=== PATIENT | male | born 1955 | race Caucasian/White ===

== ENCOUNTER → 2017-01-04 | Outpatient (CLI) | payer OTHER ==
[2017-01-04 09:22] LABS: ALANINE AMINOTRANSFERASE 30 U/L (21-72); ALBUMIN 4.6 g/dL (3.5-5.0); ALKALINE PHOSPHATASE 77 U/L (38-126); ANION GAP 15 (5-19); ASPARTATE AMINO TRANSFERASE 21 U/L (17-59); BILIRUBIN,DIRECT 0.1 mg/dL (0.0-0.4); BILIRUBIN,TOTAL 0.7 mg/dL (0.2-1.3); BLOOD UREA NITROGEN 19 mg/dL (7-20); CALCIUM 10.3 mg/dL (8.4-10.2); CARBON DIOXIDE 27 mmol/L (22-30); CHLORIDE 102 mmol/L (98-107); CHOLESTEROL 173.45 mg/dL (0-200); CREATININE RESULT 1.13 mg/dL (0.52-1.25); Direct HDL 57 mg/dL (>40); GLUCOSE 107 mg/dL (75-110); MAGNESIUM 2.1 mg/dL (1.6-2.3); POTASSIUM 4.2 mmol/L (3.6-5.0); SODIUM 143.8 mmol/L (137-145); TOTAL PROTEIN 7.7 g/dL (6.3-8.2); TRIGLYCERIDES 132 mg/dL (<150); URIC ACID 6.5 mg/dL (3.5-8.5)
[2017-01-04 09:34] LABS: DIRECT LDL 82 mg/dL (<100)
== END ==
LOC: OD 07:18
PROVIDERS: ATTEND Internal Medicine Cardiovascular Disease
DX: E78.00 Pure hypercholesterolemia, unspecified (principal); M10.9 Gout, unspecified; I10 Essential (primary) hypertension
CPT/HCPCS: 36415; 80048; 80061; 80076; 83735; 84550

== ENCOUNTER → 2017-04-11 | Outpatient (CLI) | payer OTHER ==
[2017-04-11 08:45] LABS: ANION GAP 11 (5-19); BLOOD UREA NITROGEN 20 mg/dL (7-20); CARBON DIOXIDE 28 mmol/L (22-30); CHLORIDE 102 mmol/L (98-107); CREATININE RESULT 1.13 mg/dL (0.52-1.25); GLUCOSE 102 mg/dL (75-110); POTASSIUM 4.2 mmol/L (3.6-5.0); SODIUM 140.6 mmol/L (137-145)
== END ==
LOC: OD 07:14
PROVIDERS: ATTEND Internal Medicine Cardiovascular Disease
DX: Z79.899 Other long term (current) drug therapy (principal)
CPT/HCPCS: 36415; 80048

== ENCOUNTER → 2017-11-07 | Outpatient (CLI) | payer OTHER ==
[2017-11-07 09:28] LABS: ANION GAP 11 (5-19); BLOOD UREA NITROGEN 21 mg/dL (7-20); CALCIUM 10.2 mg/dL (8.4-10.2); CARBON DIOXIDE 28 mmol/L (22-30); CHLORIDE 104 mmol/L (98-107); CHOLESTEROL 167.81 mg/dL (0-200); GLUCOSE 102 mg/dL (75-110); POTASSIUM 4.1 mmol/L (3.6-5.0); TRIGLYCERIDES 142 mg/dL (<150); URIC ACID 5.8 mg/dL (3.5-8.5)
[2017-11-07 09:38] LABS: DIRECT LDL 93 mg/dL (<100)
== END ==
LOC: OD 07:24
PROVIDERS: ATTEND Internal Medicine Cardiovascular Disease
DX: M10.9 Gout, unspecified (principal); I10 Essential (primary) hypertension; Z79.899 Other long term (current) drug therapy; E78.00 Pure hypercholesterolemia, unspecified
CPT/HCPCS: 36415; 80048; 80061; 83735; 84550

== ENCOUNTER → 2018-06-18 | Outpatient (CLI) | payer BC ==
[2018-06-18 08:37] LABS: ALANINE AMINOTRANSFERASE 21 U/L (21-72); ALBUMIN 4.4 g/dL (3.5-5.0); ALKALINE PHOSPHATASE 73 U/L (38-126); ANION GAP 10 (5-19); ASPARTATE AMINO TRANSFERASE 22 U/L (17-59); BILIRUBIN,DIRECT 0.4 mg/dL (0.0-0.4); BILIRUBIN,TOTAL 0.8 mg/dL (0.2-1.3); BLOOD UREA NITROGEN 15 mg/dL (7-20); CALCIUM 10.2 mg/dL (8.4-10.2); CARBON DIOXIDE 30 mmol/L (22-30); CHLORIDE 103 mmol/L (98-107); CHOLESTEROL 166.91 mg/dL (0-200); GLUCOSE 120 mg/dL (75-110); POTASSIUM 3.9 mmol/L (3.6-5.0); SODIUM 142.8 mmol/L (137-145); TOTAL PROTEIN 7.7 g/dL (6.3-8.2); TRIGLYCERIDES 143 mg/dL (<150); URIC ACID 6.1 mg/dL (3.5-8.5)
[2018-06-18 08:48] LABS: DIRECT LDL 86 mg/dL (<100)
== END ==
LOC: OD 07:07
PROVIDERS: ATTEND Internal Medicine Cardiovascular Disease
DX: M10.9 Gout, unspecified (principal); I10 Essential (primary) hypertension; E78.00 Pure hypercholesterolemia, unspecified; Z79.899 Other long term (current) drug therapy
CPT/HCPCS: 36415; 80048; 80061; 80076; 83735; 84550

== ENCOUNTER → 2018-09-19 | Outpatient (CLI) | payer OTHER | LOC: OD 07:06 | PROVIDERS: ATTEND Internal Medicine Cardiovascular Disease | DX: R73.01 Impaired fasting glucose (principal) | CPT/HCPCS: 36415; 82947; 83036 ==

== ENCOUNTER → 2019-01-30 | Outpatient (CLI) | payer OTHER ==
[2019-01-30 08:37] LABS: ALANINE AMINOTRANSFERASE 18 U/L (21-72); ALBUMIN 4.4 g/dL (3.5-5.0); ALKALINE PHOSPHATASE 71 U/L (38-126); ANION GAP 11 (5-19); ASPARTATE AMINO TRANSFERASE 23 U/L (17-59); BILIRUBIN,DIRECT 0.3 mg/dL (0.0-0.4); BILIRUBIN,TOTAL 0.8 mg/dL (0.2-1.3); BLOOD UREA NITROGEN 20 mg/dL (7-20); CALCIUM 10.3 mg/dL (8.4-10.2); CARBON DIOXIDE 29 mmol/L (22-30); CHLORIDE 103 mmol/L (98-107); GLUCOSE 108 mg/dL (75-110); POTASSIUM 4.4 mmol/L (3.6-5.0); TRIGLYCERIDES 149 mg/dL (<150); URIC ACID 6.4 mg/dL (3.5-8.5)
[2019-01-30 08:48] LABS: DIRECT LDL 82 mg/dL (<100)
== END ==
LOC: OD 07:11
PROVIDERS: ATTEND Internal Medicine Cardiovascular Disease
DX: E78.00 Pure hypercholesterolemia, unspecified (principal); I10 Essential (primary) hypertension; R42 Dizziness and giddiness; M10.9 Gout, unspecified; Z79.899 Other long term (current) drug therapy
CPT/HCPCS: 36415; 80048; 80061; 80076; 83735; 84550

== ENCOUNTER → 2019-12-03 | Outpatient (CLI) | payer OTHER ==
[2019-12-03 09:05] LABS: ALBUMIN 4.6 g/dL (3.5-5.0); ALKALINE PHOSPHATASE 74 U/L (38-126); ANION GAP 11 (5-19); ASPARTATE AMINO TRANSFERASE 22 U/L (17-59); BILIRUBIN,TOTAL 0.9 mg/dL (0.2-1.3); BLOOD UREA NITROGEN 18 mg/dL (7-20); CARBON DIOXIDE 30 mmol/L (22-30); CHLORIDE 97 mmol/L (98-107); CHOLESTEROL 156.48 mg/dL (0-200); GLUCOSE 106 mg/dL (75-110); TOTAL PROTEIN 7.9 g/dL (6.3-8.2); TRIGLYCERIDES 116 mg/dL (<150); URIC ACID 7.1 mg/dL (3.5-8.5)
[2019-12-03 09:13] LABS: ABSOLUTE EOSINOPHILS # (AUTO) 0.1 10^3/uL (0.0-0.6); ABSOLUTE LYMPHOCYTES (AUTO) 1.1 10^3/uL (0.5-4.7); ABSOLUTE MONOCYTES (AUTO) 0.5 10^3/uL (0.1-1.4); ABSOLUTE NEUT (AUTO) 3.7 10^3/uL (1.7-8.2); BASOPHILS % (AUTO) 0.5 % (0-2); EOSINOPHILS % (AUTO) 2.3 % (0-6); HEMATOCRIT 41.9 % (37.9-51.0); HEMOGLOBIN 15.1 g/dL (13.5-17.0); LYMPHOCYTES % (AUTO) 19.6 % (13-45); MEAN CORPUSCULAR HEMOGLOBIN 31.7 pg (27.0-33.4); MEAN CORPUSCULAR HGB CONC 35.9 g/dL (32.0-36.0); MEAN CORPUSCULAR VOLUME 88 fl (80-97); MONOCYTES % (AUTO) 9.2 % (3-13); PLATELET COUNT 192 10^3/uL (150-450); RED BLOOD COUNT 4.75 10^6/uL (4.35-5.55); SEGMENTED NEUTROPHILS % (AUTO) 68.4 % (42-78); TOTAL CELLS COUNTED % (AUTO) 100 %; WHITE BLOOD COUNT 5.5 10^3/uL (4.0-10.5)
[2019-12-03 09:41] LABS: DIRECT LDL 86 mg/dL (<100)
== END ==
LOC: OD 07:37
PROVIDERS: ATTEND Internal Medicine
DX: I10 Essential (primary) hypertension (principal); R53.83 Other fatigue; M10.9 Gout, unspecified; E78.2 Mixed hyperlipidemia; G20 Parkinson's disease
CPT/HCPCS: 36415; 80053; 80061; 83735; 84443; 84550; 85025

== ENCOUNTER 2020-02-11 06:43 | Day surgery (SDC) | payer OTHER ==
[~2020-02-11 06:43] MED LIST: FENTANYL CITRATE INJ/PF 100 MCG/2 ML AMPUL ONE; KETOROLAC TROMETHAMINE 0.45% 4 DROP/0.4 ML DROPERETTE OS PRN; MIDAZOLAM 2 MG/2 ML INJ ONE
[2020-02-11] MEDS: BESIFLOXACIN HCL 0.6% OPH SUSP 5 ML BOTTLE OS PRN ×4 (07:05→08:28)
[2020-02-11] MEDS: CYCLOPENTOLATE 0.2%/PHENYLEPHRINE 1% OPH SOLN 2 ML OS PRN ×3 (07:05→07:25)
[2020-02-11] MEDS: TROPICAMIDE 1% OPH SOLN 15 ML OS PRN ×3 (07:05→07:25)
[2020-02-11] MEDS: TETRACAINE HCL 0.5% OPH SOLN 4 ML OS PRN ×3 (07:06→07:58)
[2020-02-11] MEDS ORDERED: MIDAZOLAM 2 MG/2 ML INJ ONE (07:27)
[2020-02-11] MEDS ORDERED: EPINEPHRINE INJ/PF 1 MG/1 ML AMPULE ONE (07:50)
[2020-02-11] MEDS: LIDOCAINE 4% INJ/PF (40 MG/ML) 5 ML AMPUL OS PRN ×2 (07:59)
[2020-02-11] MEDS: BUPIVACAINE HCL 0.75% INJ/PF (7.5 MG/1 ML) 10 ML SDV OS PRN ×2 (07:59)
[2020-02-11] MEDS: LIDOCAINE 1% INJ-PF (10 MG/ML) 30 ML SDV ONE ×2 (08:10)
[2020-02-11] MEDS: CHONDR SU A NA/HYALUR INTRAOC KIT (SURGICARE) ONE ×2 (08:10)
[2020-02-11] MEDS: DORZOLAMIDE HCL 2%/TIMOLOL MALEAT 0.5% OPH SOLN 10 ML OS PRN ×2 (08:28)
--- NOTE | 2020-02-11 09:05 | Operative Report ---
Operative Report-[facility] Operative Report: DATE OF SURGERY: 02/11/2020 PREOPERATIVE DIAGNOSIS: CATARACT, LEFT EYE. POSTOPERATIVE DIAGNOSIS: CATARACT, LEFT EYE. PROCEDURE PERFORMED: PHACOEMULSIFICATION WITH POSTERIOR CHAMBER INTRAOCULAR LENS, LEFT EYE. Intraocular Lens Model : SN60WF 19.0 Total Phaco Time: 3.35 CDE SURGEON: LEYLA WOOD MD ANESTHESIA: TOPICAL WITH MAC. INDICATIONS FOR SURGERY: Difficultly driving at night PROCEDURE: The patient was brought to the Operating Room and placed on the operative table. Following tetracaine drops, topical anesthesia was administered. This consisted of instrument wipe pledgets soaked in a solution of 4% Xylocaine mixed with 0.75% Marcaine in a 1:2 ratio. A 2 x 1 cm pledget was placed in the superior fornix. A 1 x 1 cm pledget was placed in the inferior fornix. The eye was patched shut for 5 minutes. The patch was removed. The eye was sterilely prepped and draped in the usual manner. Lid speculum was placed in the eye. The pledgets were removed. 4-0 black silk sutures were placed around the superior and the inferior rectus muscles to be used as traction. A conjunctival peritomy was made at the 10 o'clock position. Hemostasis was obtained with bipolar cautery. A posterior limbal groove was created using a crescent knife and dissected anteriorly towards the cornea. A sharp point blade was used to create a paracentesis site at the 2 o'clock position. 0.2 cc non preserved Lidocaine was injected into the anterior chamber. A 2.4 mm keratome was used to enter the anterior chamber through the groove. Viscoelastic was injected into the anterior chamber. An anterior capsulotomy was performed using Utrata forceps in a capsulorrhexis fashion. Hydrodissection and hydrodelineation were performed. Phacoemulsification was performed in [id number] technique. Following this, the I/A unit was used to remove residual cortex. Viscoelastic was injected into the capsular bag. The Intraocular lens was placed in the capsular bag. The I/A unit was used to remove residual viscoelastic. The wound was seen to be watertight under high and low pressure, and no sutures were placed. The intraocular lens was well centered. The pressure was adjusted in the eye to normal pressure. The 4-0 black silk sutures and lid speculum were removed. The eye was shielded after Besivance,prednisolone, and Cosopt drops were placed. The patient tolerated the procedure well and was sent to the Recovery Room in good condition.
== END 2020-02-11 09:01 | disposition home or self-care (01) ==
LOC: SC 06:43
PROVIDERS: ATTEND Ophthalmology
DX: H25.813 Combined forms of age-related cataract, bilateral (principal); H04.123 Dry eye syndrome of bilateral lacrimal glands; H40.013 Open angle with borderline findings, low risk, bilateral; H35.362 Drusen (degenerative) of macula, left eye; H57.813 Brow ptosis, bilateral; H52.4 Presbyopia; I10 Essential (primary) hypertension; E78.00 Pure hypercholesterolemia, unspecified; Z79.899 Other long term (current) drug therapy; K21.9 Gastro-esophageal reflux disease without esophagitis; G20 Parkinson's disease
CPT/HCPCS: 66984; 00142; V2632; J2250; J3490 ×5; J0171; J3010; 142

== ENCOUNTER 2020-03-03 06:44 | Day surgery (SDC) | payer OTHER ==
[~2020-03-03 06:44] MED LIST changes: -FENTANYL CITRATE INJ/PF 100 MCG/2 ML AMPUL ONE; +KETOROLAC TROMETHAMINE 0.45% 4 DROP/0.4 ML DROPERETTE OD PRN; -KETOROLAC TROMETHAMINE 0.45% 4 DROP/0.4 ML DROPERETTE OS PRN; -MIDAZOLAM 2 MG/2 ML INJ ONE
[2020-03-03] MEDS ORDERED: FENTANYL CITRATE INJ/PF 100 MCG/2 ML AMPUL ONE (06:54)
[2020-03-03] MEDS ORDERED: MIDAZOLAM 2 MG/2 ML INJ ONE ×2 (06:54→07:39)
[2020-03-03] MEDS: TROPICAMIDE 1% OPH SOLN 15 ML OD PRN ×3 (07:05→07:30)
[2020-03-03] MEDS: TETRACAINE HCL 0.5% OPH SOLN 4 ML OD PRN ×3 (07:05→07:54)
[2020-03-03] MEDS: BESIFLOXACIN HCL 0.6% OPH SUSP 5 ML BOTTLE OD PRN ×5 (07:05→10:59)
[2020-03-03] MEDS: CYCLOPENTOLATE 0.2%/PHENYLEPHRINE 1% OPH SOLN 2 ML OD PRN ×3 (07:05→07:30)
[2020-03-03] MEDS ORDERED: CHONDR SU A NA/HYALUR INTRAOC KIT (SURGICARE) ONE (07:08)
[2020-03-03] MEDS ORDERED: LIDOCAINE 1% INJ-PF (10 MG/ML) 30 ML SDV ONE (07:08)
[2020-03-03] MEDS ORDERED: EPINEPHRINE INJ/PF 1 MG/1 ML AMPULE ONE (07:08)
[2020-03-03] MEDS: BUPIVACAINE HCL 0.75% INJ/PF (7.5 MG/1 ML) 10 ML SDV OD PRN ×3 (07:57→10:40)
[2020-03-03] MEDS: LIDOCAINE 4% INJ/PF (40 MG/ML) 5 ML AMPUL OD PRN ×3 (07:57→10:40)
[2020-03-03] MEDS: DORZOLAMIDE HCL 2%/TIMOLOL MALEAT 0.5% OPH SOLN 10 ML OD PRN ×3 (08:21→10:59)
--- NOTE | 2020-03-03 08:58 | Operative Report ---
Operative Report-[facility] Operative Report: DATE OF SURGERY: 03/03/2020 PREOPERATIVE DIAGNOSIS: CATARACT, RIGHT EYE. POSTOPERATIVE DIAGNOSIS: CATARACT, RIGHT EYE. PROCEDURE PERFORMED: PHACOEMULSIFICATION WITH POSTERIOR CHAMBER INTRAOCULAR LENS, RIGHT EYE. Intraocular Lens Model : SN60WF 19.0 Total Phaco Time: 3.65 CDE SURGEON: LEYLA WOOD MD ANESTHESIA: TOPICAL WITH MAC. INDICATIONS FOR SURGERY: Difficulty reading words on TV. PROCEDURE: The patient was brought to the Operating Room and placed on the operative table. Following tetracaine drops, topical anesthesia was administered. This consisted of instrument wipe pledgets soaked in a solution of 4% Xylocaine mixed with 0.75% Marcaine in a 1:2 ratio. A 2 x 1 cm pledget was placed in the superior fornix. A 1 x 1 cm pledget was placed in the inferior fornix. The eye was patched shut for 5 minutes. The patch was removed. The eye was sterilely prepped and draped in the usual manner. Lid speculum was placed in the eye. The pledgets were removed. 4-0 black silk sutures were placed around the superior and the inferior rectus muscles to be used as traction. A conjunctival peritomy was made at the 10 o'clock position. Hemostasis was obtained with bipolar cautery. A posterior limbal groove was created using a crescent knife and dissected anteriorly towards the cornea. A sharp point blade was used to create a paracentesis site at the 2 o'clock position. 0.2 cc non preserved Lidocaine was injected into the anterior chamber. A 2.4 mm keratome was used to enter the anterior chamber through the groove. Viscoelastic was injected into the anterior chamber. An anterior capsulotomy was performed using Utrata forceps in a capsulorrhexis fashion. Hydrodissection and hydrodelineation were performed. Phacoemulsification was performed in [id number] technique. Following this, the I/A unit was used to remove residual cortex. Viscoelastic was injected into the capsular bag. The Intraocular lens was placed in the capsular bag. The I/A unit was used to remove residual viscoelastic. The wound was seen to be watertight under high and low pressure, and no sutures were placed. The intraocular lens was well centered. The pressure was adjusted in the eye to normal pressure. The 4-0 black silk sutures and lid speculum were removed. The eye was shielded after Besivance. prednisolone, and Cosopt drops were placed. The patient tolerated the procedure well and was sent to the Recovery Room in good condition.
== END 2020-03-03 08:53 | disposition home or self-care (01) ==
LOC: SC 06:44
PROVIDERS: ATTEND Ophthalmology
DX: H25.811 Combined forms of age-related cataract, right eye (principal); I10 Essential (primary) hypertension; E78.00 Pure hypercholesterolemia, unspecified; Z96.1 Presence of intraocular lens; Z79.899 Other long term (current) drug therapy; G20 Parkinson's disease
CPT/HCPCS: 66984; V2632; J2250; J3490 ×5; J0171; 142; J3010

== ENCOUNTER 2020-08-07 17:52 | Emergency (ER) | payer OTHER ==
--- NOTE | 2020-08-07 19:04 | ER Document Report ---
ED Medical Screen (RME) - General Chief Complaint: Blood Pressure Problem Stated Complaint: DIZZINESS,SHAKY Time Seen by Provider: 08/07/20 18:53 Primary Care Provider: WILL JACKSON MD [Primary Care Provider] - Follow up as needed Mode of Arrival: Wheelchair Information source: Patient, Relative Notes: Patient is a 65-year-old male who is brought in the emergency room by his with complaint of generalized weakness and fluctuating blood pressures. Patient states that he has a history of hypertension and Parkinson's. They saw his neurologist in [place] on Monday who thought there might be a reason for the pressures to be going up and down related to the blood pressure medications and his Parkinson's medications. The states that the neurologist did not want to make any changes at this time until she could talk to his primary care provider which they have not heard anything back yet. states that he has been very fatigued sleeping most all day today difficult arousing him his pressures systolically have been anywhere from 100 to 157. Denies any neurologic deficits at this point. Patient is his baseline per . She does state that they have changed his Parkinson's medication several times in the past 3 to 4 months. Physical examination shows him to be a well-nourished well-developed 65-year-old male who is in no apparent distress on examination. Cardiac: Patient displays a rate of 90 bpm on monitor no murmurs auscultated. Lungs: Bilateral breath sounds decreased throughout no rhonchi rales or wheeze. Neurologic: Patient is awake and alert answering questions appropriately at this time. Abdomen: Bowel sounds are present all 4 quads nontender to palpate. I have greeted and performed a rapid initial assessment of this patient. A comprehensive ED assessment and evaluation of the patient, analysis of test results and completion of the medical decision making process will be conducted by additional ED providers. Dictation of this chart was performed using voice recognition software; therefore, there may be some unintended grammatical errors. TRAVEL OUTSIDE OF THE [place] IN LAST 30 DAYS: No - Related Data Allergies/Adverse Reactions: No Known Allergies Allergy (Verified 02/11/20 07:08) Past Medical History - Past Medical History Cardiac Medical History: Reports: Hx Hypertension Denies: Hx Heart Attack Pulmonary Medical History: Denies: Hx Asthma Neurological Medical History: Denies: Hx Cerebrovascular Accident, Hx Seizures GI Medical History: Denies: Hx Hepatitis, Hx Hiatal Hernia, Hx Ulcer Infectious Medical History: Denies: Hx Hepatitis Past Surgical History: Denies: Hx Open Heart Surgery, Hx Pacemaker Physical Exam - Vital signs Vitals: Temp Pulse Resp BP Pulse Ox 97.9 F 90 20 139/71 H 100 08/07/20 17:59 08/07/20 17:59 08/07/20 17:59 08/07/20 17:59 08/07/20 17:59 Course - Vital Signs Vital signs: Temp Pulse Resp BP Pulse Ox 97.9 F 90 20 139/71 H 100 08/07/20 17:59 08/07/20 17:59 08/07/20 17:59 08/07/20 17:59 08/07/20 17:59 Doctor's Discharge - Discharge Referrals: WILL JACKSON MD [Primary Care Provider] - Follow up as needed
[2020-08-07 19:49] LABS: ABSOLUTE EOSINOPHILS # (AUTO) 0.1 10^3/uL (0.0-0.6); ABSOLUTE LYMPHOCYTES (AUTO) 1.2 10^3/uL (0.5-4.7); ABSOLUTE MONOCYTES (AUTO) 0.6 10^3/uL (0.1-1.4); BASOPHILS % (AUTO) 0.6 % (0-2); EOSINOPHILS % (AUTO) 1.2 % (0-6); HEMOGLOBIN 14.5 g/dL (13.5-17.0); LYMPHOCYTES % (AUTO) 17.2 % (13-45); MEAN CORPUSCULAR HEMOGLOBIN 31.2 pg (27.0-33.4); MEAN CORPUSCULAR HGB CONC 34.5 g/dL (32.0-36.0); MEAN CORPUSCULAR VOLUME 90 fl (80-97); MONOCYTES % (AUTO) 9.3 % (3-13); PLATELET COUNT 196 10^3/uL (150-450); RED BLOOD COUNT 4.65 10^6/uL (4.35-5.55); RED CELL DISTRIBUTION WIDTH 13.4 % (11.5-14.0); SEGMENTED NEUTROPHILS % (AUTO) 71.7 % (42-78); TOTAL CELLS COUNTED % (AUTO) 100 %
[2020-08-07 19:51] LABS: APPEARANCE,URINE CLEAR; BILIRUBIN,URINE NEGATIVE (NEGATIVE); COLOR,URINE YELLOW; GLUCOSE, URINE NEGATIVE (NEGATIVE); KETONES,URINE NEGATIVE (NEGATIVE); LEUKOCYTE ESTERASE,URINE NEGATIVE (NEGATIVE); NITRITE,URINE NEGATIVE (NEGATIVE); PROTEIN,URINE NEGATIVE (NEGATIVE); URINE SPECIFIC GRAVITY 1.024
[2020-08-07 20:02] LABS: ALBUMIN 4.4 g/dL (3.5-5.0); ALKALINE PHOSPHATASE 80 U/L (38-126); ANION GAP 6 (5-19); ASPARTATE AMINO TRANSFERASE 25 U/L (17-59); BILIRUBIN,DIRECT 0.1 mg/dL (0.0-0.4); BILIRUBIN,TOTAL 0.6 mg/dL (0.2-1.3); BLOOD UREA NITROGEN 19 mg/dL (7-20); CALCIUM 9.7 mg/dL (8.4-10.2); CARBON DIOXIDE 34 mmol/L (22-30); CHLORIDE 100 mmol/L (98-107); GLUCOSE 130 mg/dL (75-110); POTASSIUM 3.9 mmol/L (3.6-5.0); TOTAL PROTEIN 7.2 g/dL (6.3-8.2)
--- NOTE | 2020-08-07 20:31 | RADIOLOGY REPORT (SQ) ---
EXAM DESCRIPTION: XR CHEST 1 VIEW COMPLETED DATE/TME: 08/07/2020 19:58 CLINICAL HISTORY: 65 years, Male, sob COMPARISON: None. NUMBER OF VIEWS: 1 TECHNIQUE: Single frontal view of the chest was obtained at 7:50 PM. LIMITATIONS: None. FINDINGS: The heart size is normal. Lungs are clear. There is no evidence of pleural effusion or pneumothorax. No definite acute bony abnormality is seen. IMPRESSION: No acute abnormality as above. copyright 2010 [employer]- All Rights Reserved
--- NOTE | 2020-08-08 02:16 | ER Document Report ---
ED General - General Chief Complaint: Blood Pressure Problem Stated Complaint: DIZZINESS,SHAKY Time Seen by Provider: 08/07/20 18:53 Primary Care Provider: WILL JACKSON MD [Primary Care Provider] - Follow up as needed Mode of Arrival: Wheelchair TRAVEL OUTSIDE OF THE [place] IN LAST 30 DAYS: No - HPI Context: This is a 66-year-old male with a history of Parkinson's that is being brought into the emergency department by his . Patient has a history of Parkinson's disease and also has a history of hypertension. However lately he has complain ed that he has felt dizzy and shaky and when his has been checking his blood pressures she has noticed that it has been down to the 90s systolic. The patient has recently seen his Parkinson's specialist at [place] and has told that provider about his blood pressure issues but the specialist is hesitant to adjust any of the patient's blood pressure medications. Patient has recently been taken off hydrochlorothiazide. However, patient still is taking lisinopril 20 mg twice a day. He is on the lowest dose of Parkinson's medication that he cannot be on at this time according to the . Patient reports that his symptoms are worse with change in position. Patient states nothing seems to alleviate his symptoms. Patient states he has been trying to drink plenty of water. Patient denies fever, chills, cough, shortness of breath, chest pain, nausea, vomiting, abdominal pain. Patient's states that they left a message with the patient's PCP about the patient's blood pressure issues but have not received a return call and will not be able to see Dr. Jackson until Monday which is 3 days from now. Patient denies history of COVID-19 infection, known exposure to persons positive for COVID-19 infection or known exposure to persons under investigation for COVID-19. Associated symptoms: Other - See HPI Exacerbated by: Other - See HPI Relieved by: Other - See HPI - Related Data Allergies/Adverse Reactions: No Known Allergies Allergy (Verified 02/11/20 07:08) Past Medical History - General Information source: Patient, Relative - Social History Smoking Status: Unknown if Ever Smoked Family History: Reviewed & Not Pertinent - Past Medical History Cardiac Medical History: Reports: Hx Hypertension Denies: Hx Heart Attack Pulmonary Medical History: Denies: Hx Asthma Neurological Medical History: Denies: Hx Cerebrovascular Accident, Hx Seizures GI Medical History: Denies: Hx Hepatitis, Hx Hiatal Hernia, Hx Ulcer Infectious Medical History: Denies: Hx Hepatitis Past Surgical History: Denies: Hx Open Heart Surgery, Hx Pacemaker Review of Systems - Review of Systems Notes: Review of systems as below unless otherwise stated in HPI. CONSTITUTIONAL [No] fever, [No] chills. + weakness and dizziness EYES [No] eye pain. ENT [No] URI symptoms, [No] sore throat, [No] ear pain. CARDIOVASCULAR [No] chest pain, [No] palpitations, [No] edema. RESPIRATORY [No] Cough, [No] SOB, [No] wheezing. GASTROINTESTINAL [No] abdominal pain, [No] nausea, [No] Diarrhea, [No] Vomiting, [No] constipation, [No] melena, [No] rectal bleeding. GENITOURINARY [No] dysuria, [No] urinary frequency, [No] hematuria, [No] urinary urgency MUSCULOSKELETAL [No] Back pain. SKIN [No] Rash. NEUROLOGIC [No] Headache, [No] recent seizures, [No] paralysis,[No] parathesias. ENDOCRINE [No] polyuria. HEMO/LYMPATIC [No] easy brusing PSYCHIATRIC [No] depression. Physical Exam - Vital signs Vitals: Temp Pulse Resp BP Pulse Ox 97.9 F 90 20 139/71 H 100 08/07/20 17:59 08/07/20 17:59 08/07/20 17:59 08/07/20 17:59 08/07/20 17:59 - Notes Notes: CONSTITUTIONAL [Vital signs reviewed, Patient appears comfortable, Alert and oriented X 3, Normal stature.] HEAD [Atraumatic, Normocephalic.] EYES [Eyes are normal to inspection, No discharge from eyes, patient has a masked facies ENT [External ears normal to inspection, Nose examination normal, Mouth normal to i nspection.] NECK [Normal ROM, No jugular venous distention, No meningeal signs, ] RESPIRATORY CHEST [Chest is nontender, Breath sounds normal, No respiratory distress.] CARDIOVASCULAR [RRR, No murmurs, Normal S1 S2, No rub, No gallop.] ABDOMEN [Abdomen is nontender, No pulsatile masses, No other masses, Bowel sounds normal, No distension, No peritoneal signs, No hernias.] BACK [There is no CVA Tenderness, There is no tenderness to palpation, Normal inspection.] UPPER EXTREMITY [Inspection normal, No cyanosis, No clubbing, No edema, LOWER EXTREMITY [Inspection normal, No cyanosis, No clubbing, No edema, No calf tenderness, NEURO Speech is slow and stammering. No pill-rolling tremor is appreciated. Patient is able to ambulate without assistance but does have a shuffling gait] SKIN [Skin is warm, Skin is dry, Skin is normal color.] LYMPHATIC [No adenopathy in neck.] PSYCHIATRIC [Flat affect. ] Course - Re-evaluation Re-evalutation: 08/08/20 02:11 Patient's initial orthostatic vital signs were positive. Patient was given a liter of fluid. Patient states he feels somewhat better and is less symptomatic. Will order another 500 mL bolus and reevaluate the patient. 08/08/20 03:59 Patient has received his second bolus of fluid. Patient states he is feeling better. Results of ED MSE discussed with patient and patient's . When asked if all questions were answered and if all of the patient's concerns were addressed during this visit, patient answered in the affirmative. Patient was instructed not to take any of his blood pressure medications between now and when he sees Dr. Jackson in follow-up. Emergency signs and symptoms, reasons to return to the emergency department discussed with patient and patient's . - Vital Signs Vital signs: Temp Pulse Resp BP Pulse Ox 97.6 F 74 18 138/69 H 100 08/07/20 21:48 08/08/20 03:18 08/07/20 21:48 08/08/20 03:18 08/07/20 21:48 - Laboratory Result Diagrams: 08/07/20 19:36 08/07/20 19:36 Laboratory results interpreted by me: 08/07/20 08/07/20 19:36 19:36 Carbon Dioxide 34 H Glucose 130 H Urine Urobilinogen 2.0 H - Diagnostic Test Radiology reviewed: Reports reviewed - EKG Interpretation by Me Additional EKG results interpreted by me: 08/08/20 03:57 EKG obtained on 08/07/2020 at 1921 hrs. was interpreted by this MD. Findings: Normal sinus rhythm rate 81, normal axis, CO interval appears to be within normal limits, P waves preceding QRS complexes, QRS complexes appear narrow, QTC is 409, there are no obvious patterns of ST segment elevation, depression or reciprocal changes seen to suggest acute myocardial ischemia or infarction. Impression: Normal sinus rhythm with nonspecific ST segments. There no prior EKGs available for comparison. Discharge - Discharge Clinical Impression: Orthostatic hypotension Condition: Stable Disposition: HOME, SELF-CARE Additional Instructions: Return to the Emergency Department without delay if any worse. HOME CARE INSTRUCTIONS & INFORMATION: Thank you for choosing us for your medical needs. We hope you're satisfied with the care you received. After you leave, you must properly care for your problem and, at the same time, observe its progress. Any condition can change. Some illnesses can change rapidly over hours or days. If your condition worsens, return to the Emergency Department or see your physician promptly. ABOUT YOUR X-RAYS AND EKG'S: If you had an EKG or X-rays taken, they have been read by the Emergency Physician. The X-rays and EKG's will also be read by a Radiologist or Direct Care Worker within 24 hours. If discrepancies are noted, you will be notified by telephone. Please be certain the ED has a correct telephone number & address where you can be reached. Also, realize that some fractures or abnormalities do not show up on initial X-rays. If your symptoms continue, see your physician. ABOUT YOUR LABORATORY TEST: If you had laboratory tests, the results have been reviewed by the Emergency Physician. Some test results (for example cultures) may not be available for several days. You will be contacted if any test result shows you need additional treatment. Please be certain the ED has a correct telephone number and address where you can be reached. ABOUT YOUR MEDICATIONS: You will receive instructions on how to take your medicine on the prescription label you receive. Additional information may be provided by the Pharmacy. If you have questions afterwards, call the ED for clarification or further instructions. Some prescribed medications may cause dr owsiness. Do not perform tasks such as driving a car or operating machinery without consulting your Pharmacist. If you feel you need a refill of pain medication, your condition will need re-evaluation. Please do not call for a refill of any medication. ABOUT YOUR SIGNATURE: Signature of this document acknowledges to followin. Understanding that you received emergency treatment and that you may be released before al medical problems are known or treated. Please be certain the ED has a correct phone number & address where you can be reached. 2. Acknowledgement that you will arrange for follow-up care as recommended. 3. Authorization for the Emergency Physician to provide information to your follow-up Physician in order to maximize your care. AT ANY TIME, IF YOUR SYMPTOMS CHANGE SIGNIFICANTLY OR WORSEN OR YOU DEVELOP NEW SYMPTOMS, RETURN TO THE EMERGENCY DEPARTMENT IMMEDIATELY FOR RE-EVALUATION. OUR GOAL IS TO PROVIDE EXCELLENT MEDICAL CARE! WE HOPE THAT WE HAVE MET YOUR EXPECTATIONS DURING YOUR EMERGENCY DEPARTMENT VISIT AND THAT YOU FEEL YOU HAVE RECEIVED EXCELLENT CARE! Orthostatic Hypotension You have orthostatic hypotension. Your blood pressure goes down when you stand up. Symptoms can include dizziness, transient loss of vision, ringing in the ears, nausea, and fainting. At this time, there's no evidence of a serious problem requiring hospitalization. Orthostatic hypotension can be caused by dehydration, poor nutrition, over- exercise, or medication. For some people, orthostatic hypotension is an ongoing problem, and no cause can be found. We usually treat orthostatic hypotension with fluids. We look for a treatable cause. If no cause was found, you should get enough rest, exercise moderately, and get plenty of fluids. When you feel the first symptoms suggesting you might faint, sit or squat down as quickly as you can. If symptoms don't go away quickly, lie down. Call the doctor or return if you are worsening or if new symptoms develop. Referrals: WILL JACKSON MD [Primary Care Provider] - 08/10/20
[2020-08-08] MEDS ORDERED: NORMAL SALINE 1000 ML 1,000 ML IV ONE (02:21)
[2020-08-08] MEDS ORDERED: NORMAL SALINE 500 ML IV ONE (03:17)
[2020-08-08 04:04] VITALS: BP 144/73
--- NOTE | 2020-08-08 11:56 | EKG REPORT ---
SEVERITY:- NORMAL ECG - SINUS RHYTHM : Confirmed by: Krzysztof Ly MD 08-Aug-2020 11:55:58
== END 2020-08-08 04:17 | disposition home or self-care (01) ==
LOC: ER 17:52
DX: I95.1 Orthostatic hypotension (principal); G20 Parkinson's disease; I10 Essential (primary) hypertension; R53.1 Weakness; Z79.899 Other long term (current) drug therapy
CPT/HCPCS: 93005; 99285; 96360; 96361; 36415; 87086; 85025; 80053; 81001; 84484; 71045; 93010; J7030; J7040

== ENCOUNTER → 2020-08-11 | Outpatient (CLI) | payer OTHER ==
[2020-08-11 07:35] LABS: ABSOLUTE BASOPHILS # (AUTO) 0.1 10^3/uL (0.0-0.2); ABSOLUTE EOSINOPHILS # (AUTO) 0.1 10^3/uL (0.0-0.6); ABSOLUTE LYMPHOCYTES (AUTO) 0.9 10^3/uL (0.5-4.7); ABSOLUTE MONOCYTES (AUTO) 0.5 10^3/uL (0.1-1.4); ABSOLUTE NEUT (AUTO) 4.3 10^3/uL (1.7-8.2); BASOPHILS % (AUTO) 0.9 % (0-2); HEMATOCRIT 40.9 % (37.9-51.0); HEMOGLOBIN 14.4 g/dL (13.5-17.0); LYMPHOCYTES % (AUTO) 14.7 % (13-45); MEAN CORPUSCULAR HEMOGLOBIN 30.9 pg (27.0-33.4); MEAN CORPUSCULAR HGB CONC 35.2 g/dL (32.0-36.0); MEAN CORPUSCULAR VOLUME 88 fl (80-97); MONOCYTES % (AUTO) 8.9 % (3-13); PLATELET COUNT 179 10^3/uL (150-450); RED BLOOD COUNT 4.66 10^6/uL (4.35-5.55); RED CELL DISTRIBUTION WIDTH 13.2 % (11.5-14.0); SEGMENTED NEUTROPHILS % (AUTO) 74.5 % (42-78); TOTAL CELLS COUNTED % (AUTO) 100 %; WHITE BLOOD COUNT 5.8 10^3/uL (4.0-10.5)
[2020-08-11 07:53] LABS: ALBUMIN 4.3 g/dL (3.5-5.0); ALKALINE PHOSPHATASE 79 U/L (38-126); ANION GAP 6 (5-19); ASPARTATE AMINO TRANSFERASE 24 U/L (17-59); BILIRUBIN,TOTAL 0.7 mg/dL (0.2-1.3); BLOOD UREA NITROGEN 14 mg/dL (7-20); CALCIUM 10.2 mg/dL (8.4-10.2); CARBON DIOXIDE 32 mmol/L (22-30); CHLORIDE 102 mmol/L (98-107); CHOLESTEROL 160.49 mg/dL (0-200); GLUCOSE 109 mg/dL (75-110); POTASSIUM 4.2 mmol/L (3.6-5.0); TOTAL PROTEIN 7.3 g/dL (6.3-8.2); TRIGLYCERIDES 91 mg/dL (<150)
[2020-08-11 08:03] LABS: DIRECT LDL 81 mg/dL (<100)
== END ==
LOC: OD 07:15
PROVIDERS: ATTEND Internal Medicine
DX: D35.2 Benign neoplasm of pituitary gland (principal); I10 Essential (primary) hypertension; E83.52 Hypercalcemia; E78.5 Hyperlipidemia, unspecified; R53.83 Other fatigue
CPT/HCPCS: 36415; 80053; 80061; 82306; 83735; 83970; 84443; 85025